=== PATIENT | male | born 1975 | race Caucasian/White ===

== ENCOUNTER 2020-09-12 11:27 | Inpatient (IN) | payer OTHER ==
--- NOTE | 2020-09-12 11:53 | BHS.RME ---
Substance Use & Tx History - Substance Use History Alcohol Substance amount: 6 pack x 24 ounce Frequency of use: Daily Substance route: Oral Date of Last Use: 09/11/20 Cocaine- Powder Substance amount: $30-40 Frequency of use: Daily Substance route: Injection (ex: intravenous or skin popping) Date of Last Use: 09/10/20 Heroin Substance amount: 3 bags Frequency of use: Daily Substance route: Injection (ex: intravenous or skin popping) Date of Last Use: 09/10/20 Marijuana/Hashish Substance amount: 3 blunts Frequency of use: Daily Substance route: Smoking Date of Last Use: 09/11/20 Nicotine Substance amount: one pack Frequency of use: Daily Substance route: Smoking Date of Last Use: 09/12/20 Xanax Substance amount: 1-2 sticks of 2 mg each Frequency of use: Less than 3 times per week Substance route: Oral Date of Last Use: 09/10/20 Physical/Psych/Mental Status - Behavior General Behavior: Increased activity (restlessness, agitation) Eye Contact: Normal - Cooperativeness Cooperativeness: Cooperative - Thinking Thought Processes: Tight Thought content: Future oriented - Physical Health Problems Is patient presently having any pain?: No Does patient presently have any injuries (include location): No Does patient currently have a fever: No CIWA Nausea/Vomitin-Mild Nausea/No Vomiting Muscle Tremors: 4-Moderate,w/Arms Extend Anxiety: 4-Mod. Anxious/Guarded Agitation: 3 Paroxysmal Sweats: No Perspiration Orientation: 0-Oriented Tacttile Disturbances: 0-None Auditory Disturbances: 0-None Visual Disturbances: 0-None Headache: 0-None Present CIWA-Ar Total Score: 12
[2020-09-12 12:27] VITALS: BMI 36.7
--- NOTE | 2020-09-12 12:32 | HP ---
CIWA Score Nausea/Vomitin-Mild Nausea/No Vomiting Muscle Tremors: 4-Moderate,w/Arms Extend Anxiety: 4-Mod. Anxious/Guarded Agitation: 3 Paroxysmal Sweats: No Perspiration Orientation: 0-Oriented Tacttile Disturbances: 0-None Auditory Disturbances: 0-None Visual Disturbances: 0-None Headache: 0-None Present CIWA-Ar Total Score: 12 - Admission Criteria [facility] Guidelines: Admission for Medically Managed Detox: Requires at least one of the followin. CIWA greater than 12 2. Seizures within the past 24 hours 3. Delirium tremens within the past 24 hours 4. Hallucinations within the past 24 hours 5. Acute intervention needed for co occurring medical disorder 6. Acute intervention needed for co occurring psychiatric disorder 7. Severe withdrawal that cannot be handled at a lower level of care (continued vomiting, continued diarrhea, abnormal vital signs) requiring intravenous medication and/or fluids 8. Admission ROS [facility] - [facility] Chief Complaint: " I need help, I lost my family because of this" Allergies/Adverse Reactions: Allergies Allergy/AdvReac Type Severity Reaction Status Date / Time No Known Allergies Allergy Verified 09/12/20 12:15 History of Present Illness: 45 year old male with history of alcohol dependence with withdrawal, opioid dependence on agonist therapy, cocaine use disorder, sedative use disorder, cannabis use, and nicotine dependence seeking detox from alcohol. 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 Cocaine- Powder Substance amount: $30-40 Frequency of use: Daily Substance route: Injection (ex: intravenous or skin popping) Date of Last Use: 09/10/20 Heroin Substance amount: 3 bags Frequency of use: Daily Substance route: Injection (ex: intravenous or skin popping) Date of Last Use: 09/10/20 Marijuana/Hashish Substance amount: 3 blunts Frequency of use: Daily Substance route: Smoking Date of Last Use: 09/11/20 Nicotine Substance amount: one pack Frequency of use: Daily Substance route: Smoking Date of Last Use: 09/12/20 Xanax Substance amount: 1-2 sticks of 2 mg each Frequency of use: Less than 3 times per week Substance route: Oral Date of Last Use: 09/10/20 PMH: None Psurg: Appendectomy Psych: None Patient is homeless and living on the streets, he has no legal issues pending. CIWA=12 [place]=0 Patient meets criteria for detox due to his myriad of substances of abuse, poor recovery environment. Exam Limitations: No Limitations - Ebola screening Have you traveled outside of the country in the last 21 days: No Have you had contact with anyone from an Ebola affected area: No Have you been sick,other than usual withdrawal symptoms: No Do you have a fever: No - Review of Systems Constitutional: Chills EENT: reports: No Symptoms Reported Respiratory: reports: No Symptoms reported Cardiac: reports: No Symptoms Reported GI: reports: No Symptoms Reported : reports: No Symptoms Reported Musculoskeletal: reports: No Symptoms Reported Integumentary: reports: No Symptoms Reported Neuro: reports: Tremors Endocrine: reports: No Symptoms Reported Hematology: reports: No Symptoms Reported Psychiatric: reports: Judgement Intact, Mood/Affect Appropiate, Orientated x3, Agitated, Anxious Other Systems: Reviewed and Negative Patient History - Patient Medical History Hx Anemia: No - Patient Surgical History Past Surgical History: Yes Hx Neurologic Surgery: No Hx Cataract Extraction: No Hx Cardiac Surgery: No Hx Lung Surgery: No Hx Breast Surgery: No Hx Breast Biopsy: No Hx Abdominal Surgery: No Hx Appendectomy: Yes Hx Cholecystectomy: No Hx Genitourinary Surgery: No Hx Section: No Hx Orthopedic Surgery: No Hx Hysterectomy: No Anesthesia Reaction: No - PPD History Previous Implant?: No Documented Results: Negative w/o proof Implanted On Prior [facility] Admission?: No PPD to be Administered?: Yes - Smoking Cessation Smoking history: Current every day smoker Have you smoked in the past 12 months: Yes Aproximately how many cigarettes per day: 20 Hx Chewing Tobacco Use: No Initiated information on smoking cessation: Yes 'Breaking Loose' booklet given: 09/12/20 - Substances abused Alcohol Substance route: Oral Frequency: Daily Amount used: six pack 24 oz beers Age of first use: 20 Date of last use: 09/11/20 Heroin Substance route: Injection Frequency: Daily Amount used: 3 bags Age of first use: 13 Date of last use: 09/10/20 Cocaine Substance route: Injection Frequency: Daily Amount used: $30-40 Age of first use: 22 Date of last use: 09/10/20 Alprazolam (Xanax) Substance route: Oral Frequency: Daily Amount used: 1-2 tabs 2mg Age of first use: 26 Date of last use: 09/10/20 Marijuana/Hashish Substance route: Smoking Frequency: Daily Amount used: 3 blunts Age of first use: 13 Date of last use: 09/11/20 Admission Physical Exam [facility] - Vital Signs Vital Signs: Vital Signs - 24 hr 09/12/20 12:19 Temperature 97.6 F Pulse Rate 61 Respiratory 18 Rate Blood Pressure 115/49 L - Physical General Appearance: Yes: Nourished, Mild Distress, Irritable, Sweating, Anxious HEENTM: Yes: EOMI, Hearing grossly Normal, Normal ENT Inspection, Normocephalic, Normal Voice, HIRAM, Pharynx Normal, Tm's normal Respiratory: Yes: Chest Non-Tender, Lungs Clear, Normal Breath Sounds, No Respiratory Distress, No Accessory Muscle Use Neck: Yes: No masses,lesions,Nodules, Supple, Trachea in good position Breast: Yes: Within Normal Limits Cardiology: Yes: Regular Rhythm, Regular Rate, S1, S2 Abdominal: Yes: Normal Bowel Sounds, Non Tender, Flat, Soft Genitourinary: Yes: Within Normal Limits Back: Yes: Normal Inspection Musculoskeletal: Yes: full range of Motion, Gait Steady, Pelvis Stable Extremities: Yes: Normal Capillary Refill, Normal Inspection, Normal Range of Motion, Non-Tender 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 intact, Fully Oriented, Alert, Motor Strength 5/5, Normal Mood/Affect, Normal Response Integumentary: Yes: Normal Color, Dry, Warm Cleared for Admission [facility] - Detox or Rehab [facility] Level of Care: Medically Managed Detox Regimen/Protocol: Librium Claeared for Rehab Admission: No Screened but not Admitted - Documentation of Visit Screened but not Admitted: No Breathalyzer - Breathalyzer Breathalyzer: 0 Vital Signs - Vital Signs Vital signs refused: No Temperature: 97.6 F Pulse Rate: 61 Respiratory Rate: 18 Blood Pressure: 115/49 BP Location: Right Arm Blood Pressure position: Sitting - Height Height: 5 ft - Weight Weight: 188 lb Weight measurement method: Standing scale - BMI Body Mass Index (BMI): 36.7 - Bowel Function Bowel Movement: No Urine Drug Screen - Test Device Lot number: [id number] Expiration date: 03/07/22 - Control Is test valid?: Yes - Results Drug screen NEGATIVE: No Urine drug screen results: THC-Marijuana, JANNIE-Cocaine, FEN-Fentanyl, MOP- Opiates, OXY-Oxycodone, MTD-Methadone, BZO-Benzodiazepines Inpatient Rehab Admission - Rehab Decision to Admit Inpatient rehab admission?: No
[2020-09-12] MEDS ORDERED: MENTHOL/PHENOL 1 EACH UD MM PRN (12:41)
[2020-09-12] MEDS ORDERED: NICOTINE POLACRILEX 2 MG GUM BUC PRN (12:41)
[2020-09-12] MEDS ORDERED: MAGNESIUM HYDROX 2400MG/30ML ORAL SUSPENSION 30 ML CUP PO PRN (12:41)
[2020-09-12] MEDS ORDERED: IBUPROFEN 400 MG TABLET (FP) PO PRN (12:41)
[2020-09-12] MEDS ORDERED: MAGNESIUM CITRATE 300 ML BOTTLE PO PRN (12:41)
[2020-09-12] MEDS ORDERED: ACETAMINOPHEN 325 MG TABLET (FP) PO PRN (12:41)
[2020-09-12] MEDS ORDERED: BISMUTH SUBSALICYLATE 262 MG/15 ML BTL PO PRN (12:41)
[2020-09-12] MEDS ORDERED: chlordiazePOXIDE HCL 25 MG CAPSULE PO PRN (12:41)
[2020-09-12] MEDS ORDERED: METHOCARBAMOL 500 MG TABLET PO PRN (12:41)
[2020-09-12] MEDS ORDERED: ONDANSETRON *ODT* 4 MG TABLET SL PRN (12:41)
[2020-09-12] MEDS: hydrOXYzine PAMOATE 25 MG CAPSULE (FP) PO SCH ×3 (14:03→22:15)
[2020-09-12] MEDS: chlordiazePOXIDE HCL 25 MG CAPSULE PO SCH ×3 (14:04→22:15)
[2020-09-12] MEDS: NICOTINE 7 MG/24 HOURS TOPICAL PATCH TD SCH (14:06)
[2020-09-12] MEDS: PRENATAL VITAMINS W/ FOLIC ACID TABLET (FP) PO SCH (14:06)
--- NOTE | 2020-09-12 15:05 | EKG ---
Test Reason : Blood Pressure : / mmHG Vent. Rate : 060 BPM Atrial Rate : 060 BPM P-R Int : 156 ms QRS Dur : 080 ms QT Int : 430 ms P-R-T Axes : 073 071 068 degrees QTc Int : 430 ms NORMAL SINUS RHYTHM NORMAL ECG NO PREVIOUS ECGS AVAILABLE Confirmed by MD Royer, Jayson ([id number]) on 09/12/2020 3:05:05 PM Referred By: Confirmed By:Jayson Linton MD
[2020-09-12 18:03] LABS: HEMATOCRIT 40.8 % (35.4-49); MCH 33.2 pg (25.7-33.7); MCHC 34.3 g/dl (32.0-35.9); MEAN CELL VOLUME 96.7 fl (80-96); MEAN PLT VOLUME 9.7 fl (7.5-11.1); PLATELET COUNT 210 K/MM3 (134-434); RBC 4.22 M/mm3 (4.00-5.60); RDW 13.6 % (11.9-15.9)
[2020-09-12 18:16] LABS: ALBUMIN 4.1 g/dl (3.4-5.0); BILIRUBIN,TOTAL 0.9 mg/dL (0.2-1); CALCIUM 9.2 mg/dL (8.5-10.1); CREATININE 0.9 mg/dL (0.55-1.3); POTASSIUM 4.3 mmol/L (3.5-5.1); TOT PROT 7.7 g/dl (6.4-8.2)
[2020-09-12] MEDS: MELATONIN 5 MG TABLETS PO SCH (22:15)
[2020-09-12] MEDS: THIAMINE HCL 100 MG TABLET (FP) PO SCH (22:15)
[2020-09-13] MEDS ORDERED: METHADONE HCL 10 MG TABLET ONE (04:32)
[2020-09-13] MEDS ORDERED: METHADONE HCL 40 MG DISPERSABLE TABLET ONE (04:33)
[2020-09-13] MEDS ORDERED: METHADONE HCL 10 MG TABLET PO SCH (06:00)
[2020-09-13] MEDS: chlordiazePOXIDE HCL 25 MG CAPSULE PO SCH ×4 (06:05→22:24)
[2020-09-13] MEDS: hydrOXYzine PAMOATE 25 MG CAPSULE (FP) PO SCH ×5 (06:05→22:24)
[2020-09-13] MEDS: METHADONE 80 MG, METHADONE 30 MG PO SCH (06:05)
--- NOTE | 2020-09-13 08:40 | PN ---
[facility] CIWA - CIWA Score Nausea/Vomitin-Mild Nausea/No Vomiting Muscle Tremors: 2 Anxiety: 2 Agitation: 2 Paroxysmal Sweats: 1-Minimal Palms Moist Orientation: 0-Oriented Tacttile Disturbances: 1-Very Mild Itch/Numbness Auditory Disturbances: 0-None Visual Disturbances: 0-None Headache: 2-Mild CIWA-Ar Total Score: 11 S Progress Note (SOAP) Subjective: alert,irritable,anxious,interrupted sleep,tremor,aching pain Objective: 09/13/20 11:32 Vital Signs Temperature 97.1 F L 09/13/20 08:30 Pulse Rate 59 L 09/13/20 08:30 Respiratory Rate 18 09/13/20 08:30 Blood Pressure 102/69 09/13/20 08:30 O2 Sat by Pulse Oximetry (%) 96 09/13/20 06:08 Laboratory Last Values WBC 7.0 K/mm3 (4.0-10.0) 09/12/20 13:40 RBC 4.22 M/mm3 (4.00-5.60) 09/12/20 13:40 Hgb 14.0 GM/dL (11.7-16.9) 09/12/20 13:40 Hct 40.8 % (35.4-49) 09/12/20 13:40 MCV 96.7 fl (80-96) H 09/12/20 13:40 MCH 33.2 pg (25.7-33.7) 09/12/20 13:40 MCHC 34.3 g/dl (32.0-35.9) 09/12/20 13:40 RDW 13.6 % (11.9-15.9) 09/12/20 13:40 Plt Count 210 K/MM3 (134-434) 09/12/20 13:40 MPV 9.7 fl (7.5-11.1) 09/12/20 13:40 Sodium 137 mmol/L (136-145) 09/12/20 12:00 Potassium 4.3 mmol/L (3.5-5.1) 09/12/20 12:00 Chloride 105 mmol/L (98-107) 09/12/20 12:00 Carbon Dioxide 26 mmol/L (21-32) 09/12/20 12:00 Anion Gap 6 MMOL/L (8-16) L 09/12/20 12:00 BUN 12.0 mg/dL (7-18) 09/12/20 12:00 Creatinine 0.9 mg/dL (0.55-1.3) 09/12/20 12:00 Est GFR (CKD-EPI)AfAm 119.97 09/12/20 12:00 Est GFR (CKD-EPI)NonAf 103.51 09/12/20 12:00 Random Glucose 111 mg/dL (74-106) H 09/12/20 12:00 Calcium 9.2 mg/dL (8.5-10.1) 09/12/20 12:00 Total Bilirubin 0.9 mg/dL (0.2-1) 09/12/20 12:00 AST 34 U/L (15-37) 09/12/20 12:00 ALT 40 U/L (13-61) 09/12/20 12:00 Alkaline Phosphatase 112 U/L (45-117) 09/12/20 12:00 Total Protein 7.7 g/dl (6.4-8.2) 09/12/20 12:00 Albumin 4.1 g/dl (3.4-5.0) 09/12/20 12:00 Syphilis Serology Non-reactive (NONREACTIVE) 09/12/20 13:40 HIV Ag/Ab Combo Qual Negative (NEGATIVE) 09/12/20 13:40 Assessment: 09/13/20 11:34 withdrawal symptom Plan: continue detox librium regimen,mmtp 110 mgs/day maintenance
[2020-09-13] MEDS: PRENATAL VITAMINS W/ FOLIC ACID TABLET (FP) PO SCH (10:05)
[2020-09-13] MEDS: NICOTINE 7 MG/24 HOURS TOPICAL PATCH TD SCH (10:05)
[2020-09-13] MEDS: THIAMINE HCL 100 MG TABLET (FP) PO SCH (22:24)
[2020-09-13] MEDS: MELATONIN 5 MG TABLETS PO SCH (22:24)
[2020-09-14] MEDS ORDERED: METHADONE HCL 10 MG TABLET ONE (04:18)
[2020-09-14] MEDS ORDERED: METHADONE HCL 40 MG DISPERSABLE TABLET ONE (04:19)
[2020-09-14] MEDS: chlordiazePOXIDE HCL 25 MG CAPSULE PO SCH ×4 (05:23→22:08)
[2020-09-14] MEDS: hydrOXYzine PAMOATE 25 MG CAPSULE (FP) PO SCH ×5 (05:23→22:08)
[2020-09-14] MEDS: METHADONE 80 MG, METHADONE 30 MG PO SCH (05:23)
[2020-09-14] MEDS: PRENATAL VITAMINS W/ FOLIC ACID TABLET (FP) PO SCH (10:25)
[2020-09-14] MEDS: NICOTINE 7 MG/24 HOURS TOPICAL PATCH TD SCH (10:25)
--- NOTE | 2020-09-14 10:37 | PN ---
[facility] CIWA - CIWA Score Nausea/Vomitin-Mild Nausea/No Vomiting Muscle Tremors: 2 Anxiety: 2 Agitation: 2 Paroxysmal Sweats: No Perspiration Orientation: 0-Oriented Tacttile Disturbances: 1-Very Mild Itch/Numbness Auditory Disturbances: 0-None Visual Disturbances: 0-None Headache: 1-Very Mild CIWA-Ar Total Score: 9 S Progress Note (SOAP) Subjective: alert,irritable,anxious,interrupted sleep,tremor,aching pain Objective: 09/14/20 12:33 Vital Signs Temperature 97.8 F 09/14/20 08:36 Pulse Rate 70 09/14/20 08:36 Respiratory Rate 18 09/14/20 08:36 Blood Pressure 111/74 09/14/20 08:36 O2 Sat by Pulse Oximetry (%) 96 09/13/20 20:20 09/14/20 12:33 Laboratory Last Values WBC 7.0 K/mm3 (4.0-10.0) 09/12/20 13:40 RBC 4.22 M/mm3 (4.00-5.60) 09/12/20 13:40 Hgb 14.0 GM/dL (11.7-16.9) 09/12/20 13:40 Hct 40.8 % (35.4-49) 09/12/20 13:40 MCV 96.7 fl (80-96) H 09/12/20 13:40 MCH 33.2 pg (25.7-33.7) 09/12/20 13:40 MCHC 34.3 g/dl (32.0-35.9) 09/12/20 13:40 RDW 13.6 % (11.9-15.9) 09/12/20 13:40 Plt Count 210 K/MM3 (134-434) 09/12/20 13:40 MPV 9.7 fl (7.5-11.1) 09/12/20 13:40 Sodium 137 mmol/L (136-145) 09/12/20 12:00 Potassium 4.3 mmol/L (3.5-5.1) 09/12/20 12:00 Chloride 105 mmol/L (98-107) 09/12/20 12:00 Carbon Dioxide 26 mmol/L (21-32) 09/12/20 12:00 Anion Gap 6 MMOL/L (8-16) L 09/12/20 12:00 BUN 12.0 mg/dL (7-18) 09/12/20 12:00 Creatinine 0.9 mg/dL (0.55-1.3) 09/12/20 12:00 Est GFR (CKD-EPI)AfAm 119.97 09/12/20 12:00 Est GFR (CKD-EPI)NonAf 103.51 09/12/20 12:00 Random Glucose 111 mg/dL (74-106) H 09/12/20 12:00 Calcium 9.2 mg/dL (8.5-10.1) 09/12/20 12:00 Total Bilirubin 0.9 mg/dL (0.2-1) 09/12/20 12:00 AST 34 U/L (15-37) 09/12/20 12:00 ALT 40 U/L (13-61) 09/12/20 12:00 Alkaline Phosphatase 112 U/L (45-117) 09/12/20 12:00 Total Protein 7.7 g/dl (6.4-8.2) 09/12/20 12:00 Albumin 4.1 g/dl (3.4-5.0) 09/12/20 12:00 Syphilis Serology Non-reactive (NONREACTIVE) 09/12/20 13:40 COVID-19 ([facility]ETA) Not detected (Not Detected) 09/12/20 13:40 HIV Ag/Ab Combo Qual Negative (NEGATIVE) 09/12/20 13:40 Assessment: 09/14/20 12:33 withdrawal symptom Plan: continue detox librium regimen,methadone maintenance 110 mgs daily
[2020-09-14] MEDS: MELATONIN 5 MG TABLETS PO SCH (22:08)
[2020-09-14] MEDS: THIAMINE HCL 100 MG TABLET (FP) PO SCH (22:08)
[2020-09-15] MEDS ORDERED: chlordiazePOXIDE HCL 10 MG CAPSULE PO PRN
[2020-09-15] MEDS ORDERED: METHADONE HCL 10 MG TABLET ONE (03:33)
[2020-09-15] MEDS ORDERED: METHADONE HCL 40 MG DISPERSABLE TABLET ONE (03:34)
[2020-09-15] MEDS: chlordiazePOXIDE HCL 10 MG CAPSULE PO SCH ×4 (06:00→22:22)
[2020-09-15] MEDS: METHADONE 80 MG, METHADONE 30 MG PO SCH (06:00)
[2020-09-15] MEDS: hydrOXYzine PAMOATE 25 MG CAPSULE (FP) PO SCH ×5 (06:00→22:22)
[2020-09-15] MEDS: NICOTINE 7 MG/24 HOURS TOPICAL PATCH TD SCH (10:20)
[2020-09-15] MEDS: PRENATAL VITAMINS W/ FOLIC ACID TABLET (FP) PO SCH (10:20)
--- NOTE | 2020-09-15 10:46 | PN ---
[facility] CIWA - CIWA Score Nausea/Vomitin-No Nausea/No Vomiting Muscle Tremors: 2 Anxiety: 2 Agitation: 0-Normal Activity Paroxysmal Sweats: 2 Orientation: 0-Oriented Tacttile Disturbances: 0-None Auditory Disturbances: 0-None Visual Disturbances: 0-None Headache: 1-Very Mild CIWA-Ar Total Score: 7 BHS Progress Note (SOAP) Subjective: c/o mild headache, anxiety, shakes, and sweats. Objective: 09/15/20 10:47 Vital Signs 09/15/20 09/15/20 06:21 08:29 Temperature 98.0 F 97.5 F L Pulse Rate 74 70 Respiratory 18 18 Rate Blood Pressure 101/71 109/71 O2 Sat by Pulse 100 Oximetry (%) Laboratory Last Values WBC 7.0 K/mm3 (4.0-10.0) 09/12/20 13:40 RBC 4.22 M/mm3 (4.00-5.60) 09/12/20 13:40 Hgb 14.0 GM/dL (11.7-16.9) 09/12/20 13:40 Hct 40.8 % (35.4-49) 09/12/20 13:40 MCV 96.7 fl (80-96) H 09/12/20 13:40 MCH 33.2 pg (25.7-33.7) 09/12/20 13:40 MCHC 34.3 g/dl (32.0-35.9) 09/12/20 13:40 RDW 13.6 % (11.9-15.9) 09/12/20 13:40 Plt Count 210 K/MM3 (134-434) 09/12/20 13:40 MPV 9.7 fl (7.5-11.1) 09/12/20 13:40 Sodium 137 mmol/L (136-145) 09/12/20 12:00 Potassium 4.3 mmol/L (3.5-5.1) 09/12/20 12:00 Chloride 105 mmol/L (98-107) 09/12/20 12:00 Carbon Dioxide 26 mmol/L (21-32) 09/12/20 12:00 Anion Gap 6 MMOL/L (8-16) L 09/12/20 12:00 BUN 12.0 mg/dL (7-18) 09/12/20 12:00 Creatinine 0.9 mg/dL (0.55-1.3) 09/12/20 12:00 Est GFR (CKD-EPI)AfAm 119.97 09/12/20 12:00 Est GFR (CKD-EPI)NonAf 103.51 09/12/20 12:00 Random Glucose 111 mg/dL (74-106) H 09/12/20 12:00 Calcium 9.2 mg/dL (8.5-10.1) 09/12/20 12:00 Total Bilirubin 0.9 mg/dL (0.2-1) 09/12/20 12:00 AST 34 U/L (15-37) 09/12/20 12:00 ALT 40 U/L (13-61) 09/12/20 12:00 Alkaline Phosphatase 112 U/L (45-117) 09/12/20 12:00 Total Protein 7.7 g/dl (6.4-8.2) 09/12/20 12:00 Albumin 4.1 g/dl (3.4-5.0) 09/12/20 12:00 Syphilis Serology Non-reactive (NONREACTIVE) 09/12/20 13:40 COVID-19 (SHWETA) Not detected (Not Detected) 09/12/20 13:40 HIV Ag/Ab Combo Qual Negative (NEGATIVE) 09/12/20 13:40 Labs noted. Assessment: 09/15/20 10:49 AOX3, in no acute respiratory distress. Full ROM, ambulating in the unit. Withdrawal symptoms. Plan: continue detox.
[2020-09-15] MEDS: MAG HYDROX/AL HYDROX/SIMETH 30 ML UNIT-DOSE CUP PO PRN ×2 (13:09→23:32)
[2020-09-15] MEDS: MELATONIN 5 MG TABLETS PO SCH (22:21)
[2020-09-15] MEDS: THIAMINE HCL 100 MG TABLET (FP) PO SCH (22:22)
[2020-09-16] MEDS ORDERED: METHADONE HCL 10 MG TABLET ONE (03:40)
[2020-09-16] MEDS ORDERED: METHADONE HCL 40 MG DISPERSABLE TABLET ONE (03:40)
[2020-09-16] MEDS: hydrOXYzine PAMOATE 25 MG CAPSULE (FP) PO SCH ×5 (05:19→22:01)
[2020-09-16] MEDS: METHADONE 80 MG, METHADONE 30 MG PO SCH (05:19)
[2020-09-16] MEDS: chlordiazePOXIDE HCL 10 MG CAPSULE PO SCH ×2 (05:19→17:11)
[2020-09-16] MEDS: ACETAMINOPHEN 325 MG TABLET (FP) PO PRN (05:47)
[2020-09-16] MEDS: PRENATAL VITAMINS W/ FOLIC ACID TABLET (FP) PO SCH (10:12)
[2020-09-16] MEDS: NICOTINE 7 MG/24 HOURS TOPICAL PATCH TD SCH (10:12)
--- NOTE | 2020-09-16 10:39 | PN ---
S CIWA - CIWA Score Nausea/Vomitin-No Nausea/No Vomiting Muscle Tremors: 1-None Visible, but [place] Anxiety: 1-Mildly Anxious Agitation: 0-Normal Activity Paroxysmal Sweats: No Perspiration Orientation: 0-Oriented Tacttile Disturbances: 0-None Auditory Disturbances: 0-None Visual Disturbances: 1-Very Mild Sensitivity Headache: 1-Very Mild CIWA-Ar Total Score: 4 BHS Progress Note (SOAP) Subjective: 45 years old male was admitted on 09/12/20 for alcohol and benzo withdrawal sx management treating with methadone detox regiment feels better today less body aches mild anxiety discussing aftercare with staff mr danielson [facility] to [facility] for alcohol and benzo abuse treatment mr williamson prefers to return to methadone program for behavioral and psychosocial therapies 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 Objective: 09/16/20 10:41 Vital Signs - 24 hr 09/15/20 09/15/20 09/15/20 13:00 16:39 20:40 Temperature 76 F L 98.0 F 97.8 F Pulse Rate 76 73 75 Respiratory 18 18 18 Rate Blood Pressure 108/76 104/64 114/73 O2 Sat by Pulse 95 97 Oximetry (%) 09/16/20 09/16/20 06:10 08:43 Temperature 97.5 F L 97.1 F L Pulse Rate 73 73 Respiratory 18 18 Rate Blood Pressure 102/76 126/83 O2 Sat by Pulse 100 Oximetry (%) Laboratory Tests 09/12/20 09/12/20 09/12/20 12:00 13:40 13:40 WBC 7.0 RBC 4.22 Hgb 14.0 Hct 40.8 MCV 96.7 H MCH 33.2 MCHC 34.3 RDW 13.6 Plt Count 210 MPV 9.7 Sodium 137 Potassium 4.3 Chloride 105 Carbon Dioxide 26 Anion Gap 6 L BUN 12.0 Creatinine 0.9 Est GFR (CKD-EPI)AfAm 119.97 Est GFR (CKD-EPI)NonAf 103.51 Random Glucose 111 H Calcium 9.2 Total Bilirubin 0.9 AST 34 ALT 40 Alkaline Phosphatase 112 Total Protein 7.7 Albumin 4.1 Syphilis Serology Non-reactive COVID-19 ([facility]A) HIV Ag/Ab Combo Qual 09/12/20 09/12/20 13:40 13:40 WBC RBC Hgb Hct MCV MCH MCHC RDW Plt Count MPV Sodium Potassium Chloride Carbon Dioxide Anion Gap BUN Creatinine Est GFR (CKD-EPI)AfAm Est GFR (CKD-EPI)NonAf Random Glucose Calcium Total Bilirubin AST ALT Alkaline Phosphatase Total Protein Albumin Syphilis Serology COVID-19 ([facility]ETA) Not detected HIV Ag/Ab Combo Qual Negative lab oted Assessment: 09/16/20 10:42 alcohol and benzo withdrawal 09/16/20 10:45 Plan: librium regiment received methadone 110 mg po today
[2020-09-16] MEDS: MAG HYDROX/AL HYDROX/SIMETH 30 ML UNIT-DOSE CUP PO PRN (12:21)
[2020-09-16] MEDS: THIAMINE HCL 100 MG TABLET (FP) PO SCH (22:00)
[2020-09-16] MEDS: MELATONIN 5 MG TABLETS PO SCH (22:00)
[2020-09-17] MEDS ORDERED: METHADONE HCL 10 MG TABLET ONE (04:49)
[2020-09-17] MEDS ORDERED: METHADONE HCL 40 MG DISPERSABLE TABLET ONE (04:50)
[2020-09-17] MEDS ORDERED: chlordiazePOXIDE HCL 10 MG CAPSULE PO ONE (05:00)
[2020-09-17] MEDS: hydrOXYzine PAMOATE 25 MG CAPSULE (FP) PO SCH ×2 (05:39→10:08)
[2020-09-17] MEDS: METHADONE 80 MG, METHADONE 30 MG PO SCH (05:39)
[2020-09-17] MEDS: ACETAMINOPHEN 325 MG TABLET (FP) PO PRN (05:42)
[2020-09-17 06:19] VITALS: TEMP 97.3
[2020-09-17] MEDS: MAG HYDROX/AL HYDROX/SIMETH 30 ML UNIT-DOSE CUP PO PRN (08:41)
[2020-09-17 09:11] VITALS: BP 123/87; PULSE 64
--- NOTE | 2020-09-17 10:02 | DS ---
[facility] Detox Discharge Summary Admission Date: 09/12/20 Discharge Date: 09/17/20 - History Present History: Alcohol Dependence, Sedative Dependence Additional Comments: 45 years old male was admitted on 09/12/20 for alcohol and benzo withdrawal sx management treated with librium detox regiment mr paris has completed the librium regiment and is tolerated well General Appearance: Yes: Nourished, no Distress, not Irritable, no Sweating, mild Anxious HEENTM: Yes: EOMI, Hearing grossly Normal, Normal ENT Inspection, Normal cephalic, Normal Voice, HIRAM, Pharynx Normal, Tm's normal Respiratory: Yes: Chest Non-Tender, Lungs Clear, Normal Breath Sounds, No Respiratory Distress, No Accessory Muscle Use Neck: Yes: No masses,lesions,Nodules, Supple, Trachea in good position Breast: Yes: Within Normal Limits Cardiology: Yes: Regular Rhythm, Regular Rate, S1, S2 Abdominal: Yes: Normal Bowel Sounds, Non Tender, Flat, Soft Genitourinary: Yes: Within Normal Limits Back: Yes: Normal Inspection Musculoskeletal: Yes: full range of Motion, Gait Steady, Pelvis Stable Extremities: Yes: Normal Capillary Refill, Normal Inspection, Normal Range of Motion, Non-Tender 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: 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: 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 intact, Fully Oriented, Alert, Motor Strength 5/5, Normal Mood/Affect, Normal Response Integumentary: Yes: Normal Color, Dry, Warm Pertinent Past History: time for discharge 49 minutes transferred order set from detox to rehab admission - Physical Exam Results Vital Signs: Vital Signs Temperature 97.3 F L 09/17/20 08:32 Pulse Rate 64 09/17/20 08:32 Respiratory Rate 18 09/17/20 08:32 Blood Pressure 123/87 09/17/20 08:32 O2 Sat by Pulse Oximetry (%) 97 09/17/20 06:18 Pertinent Admission Physical Exam Findings: alcohol and benzo withdrawal Vital Signs - 24 hr 09/16/20 09/16/20 09/16/20 13:03 16:33 20:26 Temperature 98.2 F 97.8 F 98.4 F Pulse Rate 69 75 85 Respiratory 18 18 16 Rate Blood Pressure 121/77 116/75 110/77 O2 Sat by Pulse 94 L 94 L Oximetry (%) 09/17/20 09/17/20 06:18 08:32 Temperature 97.3 F L 97.3 F L Pulse Rate 65 64 Respiratory 18 18 Rate Blood Pressure 119/71 123/87 O2 Sat by Pulse 97 Oximetry (%) Laboratory Tests 09/12/20 09/12/20 09/12/20 12:00 13:40 13:40 WBC 7.0 RBC 4.22 Hgb 14.0 Hct 40.8 MCV 96.7 H MCH 33.2 MCHC 34.3 RDW 13.6 Plt Count 210 MPV 9.7 Sodium 137 Potassium 4.3 Chloride 105 Carbon Dioxide 26 Anion Gap 6 L BUN 12.0 Creatinine 0.9 Est GFR (CKD-EPI)AfAm 119.97 Est GFR (CKD-EPI)NonAf 103.51 Random Glucose 111 H Calcium 9.2 Total Bilirubin 0.9 AST 34 ALT 40 Alkaline Phosphatase 112 Total Protein 7.7 Albumin 4.1 Syphilis Serology Non-reactive COVID-19 ([facility]) HIV Ag/Ab Combo Qual 09/12/20 09/12/20 13:40 13:40 WBC RBC Hgb Hct MCV MCH MCHC RDW Plt Count MPV Sodium Potassium Chloride Carbon Dioxide Anion Gap BUN Creatinine Est GFR (CKD-EPI)AfAm Est GFR (CKD-EPI)NonAf Random Glucose Calcium Total Bilirubin AST ALT Alkaline Phosphatase Total Protein Albumin Syphilis Serology COVID-19 ([facility]WETA) Not detected HIV Ag/Ab Combo Qual Negative glucose elevation encourage weight loss - Treatment Hospital Course: Detox Protocol Followed, Detoxed Safely, Responded well, Discharged Condition Good, Rehab Referral Accepted Patient has Accepted a Re[facility] Referral to: [facility] - Medication Discharge Medications: Ambulatory Orders Naloxone HCl [Narcan] 4 mg NS ASDIR PRN #1 spray 09/16/20 - Diagnosis (1) Alcohol dependence, uncomplicated Current Visit: Yes Status: Acute (2) Sedative, hypnotic or anxiolytic abuse, uncomplicated Current Visit: Yes Status: Acute (3) Substance induced mood disorder Current Visit: Yes Status: Suspected (4) Nicotine addiction Current Visit: Yes Status: Acute Qualifiers: Nicotine product type: cigarettes Substance use status: in withdrawal Qualified Code(s): F17.213 - Nicotine dependence, cigarettes, with withdrawal - AMA Did Patient Leave Against Medical Advice: No CIWA Score - CIWA Score Nausea/Vomitin-No Nausea/No Vomiting Muscle Tremors: 1-None Visible, but [place] Anxiety: 1-Mildly Anxious Agitation: 0-Normal Activity Paroxysmal Sweats: No Perspiration Orientation: 0-Oriented Tacttile Disturbances: 0-None Auditory Disturbances: 0-None Visual Disturbances: 0-None Headache: 0-None Present CIWA-Ar Total Score: 2
[2020-09-17] MEDS: PRENATAL VITAMINS W/ FOLIC ACID TABLET (FP) PO SCH (10:08)
[2020-09-17] MEDS: NICOTINE 7 MG/24 HOURS TOPICAL PATCH TD SCH (10:08)
== END 2020-09-17 11:10 | disposition other institution (70) | DRG 773 ==
LOC: YASAS 11:27 → Y3N 12:34
PROVIDERS: ADMIT Allergy & Immunology; ATTEND Allergy & Immunology
PROC: HZ2ZZZZ Detoxification Services for Substance Abuse Treatment (ICD-10-PCS; principal; 2020-09-12)
DX: F10.230 Alcohol dependence with withdrawal, uncomplicated (principal); F13.230 Sedative, hypnotic or anxiolytic dependence with withdrawal, uncomplicated; F11.20 Opioid dependence, uncomplicated; F14.20 Cocaine dependence, uncomplicated; F12.20 Cannabis dependence, uncomplicated; F17.213 Nicotine dependence, cigarettes, with withdrawal; Z90.49 Acquired absence of other specified parts of digestive tract
CPT/HCPCS: 36415; 80053; 85027; 86780; 87389; 93005; 93010; C9803; U0003

== ENCOUNTER 2021-06-10 13:44 | Inpatient (IN) | payer OTHER ==
[2021-06-10 16:01] VITALS: BMI 23.3
[2021-06-10] MEDS ORDERED: LOPERAMIDE HCL 2 MG CAPSULE PO PRN (23:59)
[2021-06-10] MEDS ORDERED: MAG HYDROX/AL HYDROX/SIMETH 30 ML UNIT-DOSE CUP PO PRN (23:59)
[2021-06-10] MEDS ORDERED: NICOTINE POLACRILEX 2 MG GUM BC PRN (23:59)
[2021-06-10] MEDS ORDERED: ACETAMINOPHEN 325 MG TABLET (FP) PO PRN (23:59)
[2021-06-10] MEDS ORDERED: guaiFENesin 200 MG/10 ML 10 ML UNIT-DOSE CUPS PO PRN (23:59)
[2021-06-10] MEDS ORDERED: MAGNESIUM CITRATE 300 ML BOTTLE PO PRN (23:59)
[2021-06-10] MEDS ORDERED: MAGNESIUM HYDROX 2400MG/30ML ORAL SUSPENSION 30 ML CUP PO PRN (23:59)
[2021-06-10] MEDS ORDERED: P-EPHED 60MG/TRIPROLIDI 2.5MG TABLET PO PRN (23:59)
[2021-06-11] MEDS: MELATONIN 5 MG TABLETS PO SCH ×2 (02:05→21:33)
[2021-06-11] MEDS ORDERED: methaDONE HCL 10 MG TABLET PO ONE (09:26)
[2021-06-11] MEDS ORDERED: methaDONE 40 MG, methaDONE 30 MG PO ONE (09:38)
[2021-06-11] MEDS ORDERED: methaDONE HCL 40 MG DISPERSABLE TABLET ONE (10:02)
[2021-06-11] MEDS ORDERED: methaDONE HCL 10 MG TABLET ONE (10:02)
[2021-06-11] MEDS: NICOTINE 14 MG/24 HOURS TOPICAL PATCH TD SCH (10:17)
[2021-06-11] MEDS: PRENATAL VITAMINS W/ FOLIC ACID TABLET (FP) PO SCH (10:17)
[2021-06-11 12:31] LABS: HEMATOCRIT 35.9 % (35.4-49); HEMOGLOBIN 12.3 GM/dL (11.7-16.9); MCHC 34.2 g/dl (32.0-35.9); MEAN CELL VOLUME 93.7 fl (80-96); MEAN PLT VOLUME 9.7 fl (7.5-11.1); PLATELET COUNT 132 10^3/uL (134-434); RBC 3.83 M/mm3 (4.00-5.60); RDW 12.9 % (11.9-15.9); WHITE BLOOD COUNT 3.9 K/mm3 (4.0-10.0)
[2021-06-11] MEDS ORDERED: LIDOCAINE VISCOUS 2% ORAL/TOP 15 ML UNIT-DOSE CUP MM PRN (15:35)
[2021-06-11 17:13] LABS: ALBUMIN 3.3 g/dl (3.4-5.0); CALCIUM 8.5 mg/dL (8.5-10.1)
[2021-06-11 17:14] LABS: BLOOD UREA NITROGEN 7.3 mg/dL (7-18)
[2021-06-11 17:16] LABS: CREATININE 0.7 mg/dL (0.55-1.3)
[2021-06-11 17:17] LABS: BILIRUBIN,TOTAL 0.2 mg/dL (0.2-1)
[2021-06-11 17:18] LABS: TOT PROT 6.3 g/dl (6.4-8.2)
[2021-06-11] MEDS: IBUPROFEN 400 MG TABLET (FP) PO PRN (21:33)
[2021-06-11] MEDS: THIAMINE HCL 100 MG TABLET (FP) PO SCH (21:33)
[2021-06-12] MEDS ORDERED: methaDONE HCL 10 MG TABLET PO SCH (06:00)
[2021-06-12] MEDS: methaDONE 40 MG, methaDONE 30 MG PO SCH (06:51)
[2021-06-12] MEDS ORDERED: methaDONE HCL 10 MG TABLET ONE (06:51)
[2021-06-12] MEDS ORDERED: methaDONE HCL 40 MG DISPERSABLE TABLET ONE (06:51)
[2021-06-12] MEDS: NICOTINE 14 MG/24 HOURS TOPICAL PATCH TD SCH (10:36)
[2021-06-12] MEDS: PRENATAL VITAMINS W/ FOLIC ACID TABLET (FP) PO SCH (10:39)
[2021-06-12] MEDS: METHOCARBAMOL 500 MG TABLET PO PRN (21:50)
[2021-06-12] MEDS: MELATONIN 5 MG TABLETS PO SCH (21:50)
[2021-06-12] MEDS: THIAMINE HCL 100 MG TABLET (FP) PO SCH (21:50)
[2021-06-13] MEDS ORDERED: methaDONE HCL 10 MG TABLET ONE (04:51)
[2021-06-13] MEDS ORDERED: methaDONE HCL 40 MG DISPERSABLE TABLET ONE (04:51)
[2021-06-13] MEDS: methaDONE 40 MG, methaDONE 30 MG PO SCH (06:50)
[2021-06-13] MEDS: PRENATAL VITAMINS W/ FOLIC ACID TABLET (FP) PO SCH (10:39)
[2021-06-13] MEDS: NICOTINE 14 MG/24 HOURS TOPICAL PATCH TD SCH (10:39)
[2021-06-13] MEDS: METHOCARBAMOL 500 MG TABLET PO PRN ×2 (10:40→21:38)
[2021-06-13] MEDS: IBUPROFEN 400 MG TABLET (FP) PO PRN ×2 (10:40→21:39)
[2021-06-13 13:40] LABS: URINE APPEARANCE CLEAR; URINE BILIRUBIN NEGATIVE (NEGATIVE); URINE COLOR YELLOW; URINE GLUCOSE (UA) NEGATIVE (NEGATIVE); URINE KETONE NEGATIVE (NEGATIVE); URINE LEUK ESTERASE NEGATIVE (NEGATIVE); URINE NITRITE NEGATIVE (NEGATIVE); URINE PROTEIN NEGATIVE (NEGATIVE); URINE UROBILINOGEN 0.2 mg/dL (0.2-1.0)
[2021-06-13] MEDS: THIAMINE HCL 100 MG TABLET (FP) PO SCH (21:38)
[2021-06-13] MEDS: MELATONIN 5 MG TABLETS PO SCH (21:38)
[2021-06-14] MEDS ORDERED: methaDONE HCL 10 MG TABLET ONE (05:56)
[2021-06-14] MEDS ORDERED: methaDONE HCL 40 MG DISPERSABLE TABLET ONE (05:56)
[2021-06-14] MEDS: methaDONE 40 MG, methaDONE 30 MG PO SCH (06:58)
[2021-06-14] MEDS: NICOTINE 14 MG/24 HOURS TOPICAL PATCH TD SCH (10:24)
[2021-06-14] MEDS: METHOCARBAMOL 500 MG TABLET PO PRN ×2 (10:24→21:53)
[2021-06-14] MEDS: PRENATAL VITAMINS W/ FOLIC ACID TABLET (FP) PO SCH (10:24)
[2021-06-14] MEDS: IBUPROFEN 400 MG TABLET (FP) PO PRN (10:24)
[2021-06-14] MEDS: THIAMINE HCL 100 MG TABLET (FP) PO SCH (21:53)
[2021-06-14] MEDS: MELATONIN 5 MG TABLETS PO SCH (21:53)
[2021-06-15] MEDS ORDERED: methaDONE HCL 40 MG DISPERSABLE TABLET ONE (03:15)
[2021-06-15] MEDS ORDERED: methaDONE HCL 10 MG TABLET ONE (03:15)
[2021-06-15] MEDS: methaDONE 40 MG, methaDONE 30 MG PO SCH (06:58)
[2021-06-15] MEDS: PRENATAL VITAMINS W/ FOLIC ACID TABLET (FP) PO SCH (10:12)
[2021-06-15] MEDS: NICOTINE 14 MG/24 HOURS TOPICAL PATCH TD SCH (10:12)
[2021-06-15] MEDS: IBUPROFEN 400 MG TABLET (FP) PO PRN ×2 (10:13→21:36)
[2021-06-15] MEDS: THIAMINE HCL 100 MG TABLET (FP) PO SCH (21:35)
[2021-06-15] MEDS: MELATONIN 5 MG TABLETS PO SCH (21:35)
[2021-06-16] MEDS ORDERED: methaDONE HCL 10 MG TABLET ONE (04:55)
[2021-06-16] MEDS ORDERED: methaDONE HCL 40 MG DISPERSABLE TABLET ONE (04:56)
[2021-06-16] MEDS: methaDONE 40 MG, methaDONE 30 MG PO SCH (06:47)
[2021-06-16] MEDS: NICOTINE 14 MG/24 HOURS TOPICAL PATCH TD SCH (10:07)
[2021-06-16] MEDS: PRENATAL VITAMINS W/ FOLIC ACID TABLET (FP) PO SCH (10:07)
[2021-06-16] MEDS: IBUPROFEN 400 MG TABLET (FP) PO PRN ×2 (10:08→21:34)
[2021-06-16] MEDS: THIAMINE HCL 100 MG TABLET (FP) PO SCH (21:34)
[2021-06-16] MEDS: MELATONIN 5 MG TABLETS PO SCH (21:34)
[2021-06-17] MEDS ORDERED: methaDONE HCL 10 MG TABLET ONE (03:01)
[2021-06-17] MEDS ORDERED: methaDONE HCL 40 MG DISPERSABLE TABLET ONE (03:01)
[2021-06-17] MEDS: methaDONE 40 MG, methaDONE 30 MG PO SCH (06:47)
[2021-06-17] MEDS: NICOTINE 14 MG/24 HOURS TOPICAL PATCH TD SCH (10:40)
[2021-06-17] MEDS: PRENATAL VITAMINS W/ FOLIC ACID TABLET (FP) PO SCH (10:40)
[2021-06-17] MEDS: IBUPROFEN 400 MG TABLET (FP) PO PRN ×2 (10:41→21:42)
[2021-06-17] MEDS: MELATONIN 5 MG TABLETS PO SCH (21:41)
[2021-06-17] MEDS: THIAMINE HCL 100 MG TABLET (FP) PO SCH (21:42)
[2021-06-18] MEDS ORDERED: methaDONE HCL 10 MG TABLET ONE (04:50)
[2021-06-18] MEDS ORDERED: methaDONE HCL 40 MG DISPERSABLE TABLET ONE (04:50)
[2021-06-18] MEDS: methaDONE 40 MG, methaDONE 30 MG PO SCH (06:53)
[2021-06-18] MEDS: PRENATAL VITAMINS W/ FOLIC ACID TABLET (FP) PO SCH (10:14)
[2021-06-18] MEDS: NICOTINE 14 MG/24 HOURS TOPICAL PATCH TD SCH (10:14)
[2021-06-18] MEDS: IBUPROFEN 400 MG TABLET (FP) PO PRN ×2 (10:15→21:20)
[2021-06-18] MEDS: METHOCARBAMOL 500 MG TABLET PO PRN ×2 (10:15→21:20)
[2021-06-18] MEDS: MELATONIN 5 MG TABLETS PO SCH (21:20)
[2021-06-18] MEDS: THIAMINE HCL 100 MG TABLET (FP) PO SCH (21:21)
[2021-06-19] MEDS ORDERED: methaDONE HCL 40 MG DISPERSABLE TABLET ONE (04:56)
[2021-06-19] MEDS ORDERED: methaDONE HCL 10 MG TABLET ONE (04:56)
[2021-06-19] MEDS: methaDONE 40 MG, methaDONE 30 MG PO SCH (06:32)
[2021-06-19] MEDS: IBUPROFEN 400 MG TABLET (FP) PO PRN (10:02)
[2021-06-19] MEDS: PRENATAL VITAMINS W/ FOLIC ACID TABLET (FP) PO SCH (10:03)
[2021-06-19] MEDS: NICOTINE 14 MG/24 HOURS TOPICAL PATCH TD SCH (10:03)
[2021-06-19] MEDS: THIAMINE HCL 100 MG TABLET (FP) PO SCH (21:24)
[2021-06-19] MEDS: METHOCARBAMOL 500 MG TABLET PO PRN (21:24)
[2021-06-19] MEDS: MELATONIN 5 MG TABLETS PO SCH (21:24)
[2021-06-20] MEDS ORDERED: methaDONE HCL 10 MG TABLET ONE (03:21)
[2021-06-20] MEDS ORDERED: methaDONE HCL 40 MG DISPERSABLE TABLET ONE (03:22)
[2021-06-20] MEDS: methaDONE 40 MG, methaDONE 30 MG PO SCH (06:57)
[2021-06-20] MEDS: NICOTINE 14 MG/24 HOURS TOPICAL PATCH TD SCH (10:17)
[2021-06-20] MEDS: PRENATAL VITAMINS W/ FOLIC ACID TABLET (FP) PO SCH (10:17)
[2021-06-20] MEDS: IBUPROFEN 400 MG TABLET (FP) PO PRN ×2 (10:18→21:30)
[2021-06-20] MEDS: MELATONIN 5 MG TABLETS PO SCH (21:29)
[2021-06-20] MEDS: THIAMINE HCL 100 MG TABLET (FP) PO SCH (21:29)
[2021-06-21] MEDS ORDERED: methaDONE HCL 40 MG DISPERSABLE TABLET ONE (03:51)
[2021-06-21] MEDS ORDERED: methaDONE HCL 10 MG TABLET ONE (03:51)
[2021-06-21] MEDS: methaDONE 40 MG, methaDONE 30 MG PO SCH (06:59)
[2021-06-21] MEDS: PRENATAL VITAMINS W/ FOLIC ACID TABLET (FP) PO SCH (10:02)
[2021-06-21] MEDS: NICOTINE 14 MG/24 HOURS TOPICAL PATCH TD SCH (10:02)
[2021-06-21] MEDS: IBUPROFEN 400 MG TABLET (FP) PO PRN ×2 (10:03→21:22)
[2021-06-21] MEDS: METHOCARBAMOL 500 MG TABLET PO PRN ×2 (10:03→21:22)
[2021-06-21] MEDS: MELATONIN 5 MG TABLETS PO SCH (21:21)
[2021-06-21] MEDS: THIAMINE HCL 100 MG TABLET (FP) PO SCH (21:21)
[2021-06-22] MEDS ORDERED: methaDONE HCL 10 MG TABLET ONE (03:22)
[2021-06-22] MEDS ORDERED: methaDONE HCL 40 MG DISPERSABLE TABLET ONE (03:22)
[2021-06-22] MEDS: methaDONE 40 MG, methaDONE 30 MG PO SCH (06:26)
[2021-06-22 07:29] VITALS: TEMP 97.6
[2021-06-22] MEDS: METHOCARBAMOL 500 MG TABLET PO PRN ×2 (10:31→21:42)
[2021-06-22] MEDS: IBUPROFEN 400 MG TABLET (FP) PO PRN ×2 (10:31→21:42)
[2021-06-22] MEDS: NICOTINE 14 MG/24 HOURS TOPICAL PATCH TD SCH (10:31)
[2021-06-22] MEDS: PRENATAL VITAMINS W/ FOLIC ACID TABLET (FP) PO SCH (10:31)
[2021-06-22] MEDS: MELATONIN 5 MG TABLETS PO SCH (21:42)
[2021-06-22] MEDS: THIAMINE HCL 100 MG TABLET (FP) PO SCH (21:42)
[2021-06-23] MEDS ORDERED: methaDONE HCL 10 MG TABLET ONE (02:47)
[2021-06-23] MEDS ORDERED: methaDONE HCL 40 MG DISPERSABLE TABLET ONE (02:48)
[2021-06-23] MEDS: methaDONE 40 MG, methaDONE 30 MG PO SCH (06:37)
[2021-06-23] MEDS: IBUPROFEN 400 MG TABLET (FP) PO PRN ×2 (09:39→21:55)
[2021-06-23] MEDS: NICOTINE 14 MG/24 HOURS TOPICAL PATCH TD SCH (09:39)
[2021-06-23] MEDS: METHOCARBAMOL 500 MG TABLET PO PRN ×2 (09:39→21:55)
[2021-06-23] MEDS: PRENATAL VITAMINS W/ FOLIC ACID TABLET (FP) PO SCH (09:40)
[2021-06-23] MEDS: THIAMINE HCL 100 MG TABLET (FP) PO SCH (21:55)
[2021-06-23] MEDS: MELATONIN 5 MG TABLETS PO SCH (21:55)
[2021-06-24] MEDS ORDERED: methaDONE HCL 40 MG DISPERSABLE TABLET ONE (03:38)
[2021-06-24] MEDS ORDERED: methaDONE HCL 10 MG TABLET ONE (03:38)
[2021-06-24] MEDS: methaDONE 40 MG, methaDONE 30 MG PO SCH (05:47)
[2021-06-24 07:24] VITALS: BP 107/60; PULSE 60
[2021-06-24] MEDS: NICOTINE 14 MG/24 HOURS TOPICAL PATCH TD SCH (09:47)
[2021-06-24] MEDS: PRENATAL VITAMINS W/ FOLIC ACID TABLET (FP) PO SCH (09:47)
== END 2021-06-24 10:10 | disposition home or self-care (01) | DRG 772 ==
LOC: YASAS 13:44 → Y5N 06-11 01:32
PROVIDERS: ADMIT Allergy & Immunology; ATTEND Allergy & Immunology
PROC: HZ42ZZZ Group Counseling for Substance Abuse Treatment, Cognitive-Behavioral (ICD-10-PCS; principal; 2021-06-11)
DX: F10.20 Alcohol dependence, uncomplicated (principal); F11.20 Opioid dependence, uncomplicated; F14.20 Cocaine dependence, uncomplicated; F17.210 Nicotine dependence, cigarettes, uncomplicated; F19.282 Other psychoactive substance dependence with psychoactive substance-induced sleep disorder; F19.24 Other psychoactive substance dependence with psychoactive substance-induced mood disorder; F43.10 Post-traumatic stress disorder, unspecified; F41.9 Anxiety disorder, unspecified; F32.9 Major depressive disorder, single episode, unspecified; Z86.19 Personal history of other infectious and parasitic diseases
CPT/HCPCS: 36415; 80053; 81003; 85027; 86780; C9803; U0003; U0005